=== PATIENT | female | born 2000 | race Caucasian/White ===

== ENCOUNTER 2019-08-29 21:17 | Emergency (ER) | payer OTHER ==
--- NOTE | 2019-08-29 23:53 | ER Document Report ---
ED Medical Screen (RME) - General Chief Complaint: Abdominal Pain Stated Complaint: URINATING BLOOD,ABDOMINAL PAIN Time Seen by Provider: 08/29/19 23:49 Notes: Patient is a 18-year-old female who presents emergency department with a chief complaint of burning with urination. Patient reports she is had burning with urination for about 2 days. Patient also reports suprapubic pain. Patient reports she did attempt to take 2 cranberry pills and did feel slightly better but that the symptoms did persist today. Patient reports her last menstrual cycle was July 28. Patient reports she did have a miscarriage 3 weeks ago? Patient states he is not currently on control. Patient denies vaginal bleeding or discharge. Physical Exam - Vital signs Vitals: Temp Pulse Resp BP Pulse Ox 98.3 F 84 20 173/90 H 98 08/29/19 22:07 08/29/19 22:07 08/29/19 22:07 08/29/19 22:07 08/29/19 22:07 - Abdominal Notes: Suprapubic pain with palpation. Course - Re-evaluation Re-evalutation: 08/29/19 23:52 I have greeted and performed a rapid initial assessment of this patient. A comprehensive ED assessment and evaluation of the patient, analysis of test results and completion of the medical decision making process will be conducted by additional ED providers. - Vital Signs Vital signs: Temp Pulse Resp BP Pulse Ox 98.3 F 84 20 149/94 H 98 08/29/19 22:07 08/29/19 22:07 08/29/19 22:07 08/29/19 22:08 08/29/19 22:07
[2019-08-30 00:12] LABS: APPEARANCE,URINE CLOUDY; BILIRUBIN,URINE NEGATIVE (NEGATIVE); COLOR,URINE YELLOW; GLUCOSE, URINE NEGATIVE (NEGATIVE); KETONES,URINE NEGATIVE (NEGATIVE); LEUKOCYTE ESTERASE,URINE LARGE (NEGATIVE); NITRITE,URINE NEGATIVE (NEGATIVE); PROTEIN,URINE 30 mg/dL (NEGATIVE); URINE SPECIFIC GRAVITY 1.017; UROBILINOGEN,URINE NEGATIVE mg/dL (<2.0)
--- NOTE | 2019-08-30 02:54 | ER Document Report ---
ED GI/ - General Chief Complaint: Urinary Problem Stated Complaint: URINATING BLOOD,ABDOMINAL PAIN Time Seen by Provider: 08/29/19 23:49 Mode of Arrival: Ambulatory Notes: 17-year-old female presented to ED for complaint of burning frequency and urgency with urination with a foul smell. She states she does get frequent Maxwell tract infections. She states that 2 days ago she had a lot of burning frequency and urgency she started taking the Azo and got better than the day it was much worse. States she did take cranberry pills but the pain has persisted. She states her last menstrual cycle was July 28 and she had a miscarriage 3 weeks ago. TRAVEL OUTSIDE OF THE [place] IN LAST 30 DAYS: No - HPI Patient complains to provider of: Other - Urinary frequency urgency and burning Onset: Other - 3 days Timing/Duration: Gradual Quality of pain: Burning Pain Level: 5 Location: Suprapubic Vaginal bleeding (Compared to normal period): None LMP: 07/28/2019 Associated symptoms: Nausea, Urinary frequency, Urinary urgency, Other - Burning Exacerbated by: Denies Relieved by: Denies Similar symptoms previously: Yes Recently seen / treated by doctor: No - Related Data Allergies/Adverse Reactions: Penicillins Allergy (Intermediate, Verified 08/30/19 02:46) Hives Sulfa (Sulfonamide Antibiotics) Allergy (Intermediate, Verified 08/30/19 02:46) Hives Past Medical History - General Information source: Patient Last Menstrual Period: 07/28/2019 - Social History Smoking Status: Never Smoker Chew tobacco use (# tins/day): No Frequency of alcohol use: [email or web address] - transportation manager at [employer] Drug Abuse: None Lives with: Family Family History: Reviewed & Not Pertinent Patient has suicidal ideation: No Patient has homicidal ideation: No - Past Medical History Cardiac Medical History: Reports: None Pulmonary Medical History: Reports: None EENT Medical History: Reports: None Neurological Medical History: Reports: None Endocrine Medical History: Reports: None Renal/ Medical History: Reports: None Malignancy Medical History: Reports: None GI Medical History: Reports: None Musculoskeletal Medical History: Reports None Skin Medical History: Reports None Psychiatric Medical History: Reports: None Traumatic Medical History: Reports: None Infectious Medical History: Reports: None Surgical Hx: Negative Past Surgical History: Reports: None - Immunizations Immunizations up to date: No Hx Diphtheria, Pertussis, Tetanus Vaccination: No Review of Systems - Review of Systems Constitutional: No symptoms reported EENT: No symptoms reported Cardiovascular: No symptoms reported Respiratory: No symptoms reported Gastrointestinal: No symptoms reported Genitourinary: Burning, Frequency, Urgency Female Genitourinary: No symptoms reported Musculoskeletal: No symptoms reported Skin: No symptoms reported Hematologic/Lymphatic: No symptoms reported Neurological/Psychological: No symptoms reported -: Yes All other systems reviewed and negative Physical Exam - Vital signs Vitals: Temp Pulse Resp BP Pulse Ox 98.3 F 84 20 173/90 H 98 08/29/19 22:07 08/29/19 22:07 08/29/19 22:07 08/29/19 22:07 08/29/19 22:07 Interpretation: Normal - General General appearance: Appears well, Alert - HEENT Head: Normocephalic, Atraumatic Eyes: Normal Pupils: PERRL - Respiratory Respiratory status: No respiratory distress Chest status: Nontender Breath sounds: Normal Chest palpation: Normal - Cardiovascular Rhythm: Regular Heart sounds: Normal auscultation Murmur: No - Abdominal Inspection: Normal Distension: No distension Bowel sounds: Normal Tenderness: Tender - suprapubic Organomegaly: No organomegaly - Back Back: Normal, Nontender - Extremities General upper extremity: Normal inspection, Nontender, Normal color, Normal ROM, Normal temperature General lower extremity: Normal inspection, Nontender, Normal color, Normal ROM, Normal temperature, Normal weight bearing. No: Elmuel's sign - Neurological Neuro grossly intact: Yes Cognition: Normal Orientation: AAOx4 José Coma Scale Eye Opening: Spontaneous José Coma Scale Verbal: Oriented José Coma Scale Motor: Obeys Commands José Coma Scale Total: 15 Speech: Normal Motor strength normal: LUE, RUE, LLE, RLE Sensory: Normal - Psychological Associated symptoms: Normal affect, Normal mood - Skin Skin Temperature: Warm Skin Moisture: Dry Skin Color: Normal Course - Vital Signs Vital signs: Temp Pulse Resp BP Pulse Ox 98.7 F 80 16 141/77 H 96 08/30/19 03:26 08/30/19 03:26 08/30/19 03:26 08/30/19 03:26 08/30/19 03:26 - Laboratory Laboratory results interpreted by me: 08/29/19 23:47 Urine Protein 30 H Urine Blood MODERATE H Ur Leukocyte Esterase LARGE H Discharge - Discharge Clinical Impression: UTI (urinary tract infection) Qualifiers: Urinary tract infection type: acute cystitis Hematuria presence: with hematuria Qualified Code(s): N30.01 - Acute cystitis with hematuria Condition: Stable Disposition: HOME, SELF-CARE Additional Instructions: URINARY TRACT INFECTION: Your evaluation indicates that you have a urinary tract infection. This is due to germs growing in the bladder. This is a common problem. This infection usually responds quickly to antibiotics. Your antibiotic should be taken exactly as prescribed. Drink plenty of fluids -- three to four quarts a day. Occasionally, a bladder anesthetic will be prescribed to help stop the feeling of urgency until the antibiotic has a chance to clear the infection. This may cause your urine to be dark orange. Certain urine infections require a culture. If the doctor obtained a culture, the results will be back in two days. You should call to see if a change in treatment is needed. A repeat urinalysis after you finish treatment is often recommended. The physician will let you know if further testing is required. Call the doctor if you develop fever, chills, flank pain, inability to urinate, or blood in the urine. NITROFURANTOIN (MACRODANTIN, MACROBID): You have received a prescription for nitrofurantoin (Macrodantin). This antibiotic is used for urinary tract infections. Women who are or nursing should notify the physician before taking this medicine. If you have ever had a problem caused by this medication in the past, be sure the physician is aware of it. Common side effects of this medicine include nausea, vomiting, or decreased appetite. Notify your physician if these side effects become severe. Immediately stop this medicine and call the physician if you develop cough, shortness of breath, chest pain, weakness, jaundice (yellow color of the skin and whites of the eyes), or a skin rash. FOLLOW-UP CARE: If you have been referred to a physician for follow-up care, call the physicians office for an appointment as you were instructed or within the next two days. If you experience worsening or a significant change in your symptoms, notify the physician immediately or return to the Emergency Department at any time for re-evaluation. Prescriptions: Nitrofurantoin/Nitrofuran Mac [Macrobid 100 mg Capsule] 1 tab PO BID #20 capsule Forms: Elevated Blood Pressure, Return to Work
[2019-08-30] MEDS ORDERED: IBUPROFEN 800 MG TABLET PO ONE (02:57)
[2019-08-30] MEDS ORDERED: NITROFURANTOIN MONOHYD/M-CRYST 100 MG CAPSULE PO ONE (02:57)
[2019-08-30] MEDS ORDERED: ONDANSETRON 4 MG TAB.RAPDIS PO ONE (02:58)
[2019-08-30 03:17] VITALS: BP 141/77
== END 2019-08-30 03:25 | disposition home or self-care (01) ==
LOC: ER 21:17
DX: N30.01 Acute cystitis with hematuria (principal); R39.198 Other difficulties with micturition; R10.9 Unspecified abdominal pain; R39.15 Urgency of urination
CPT/HCPCS: 99283; 87086; 87088; 81001; 87186; S0119; J8499